=== PATIENT | female | born 1970 | race Caucasian/White ===

== ENCOUNTER → 2018-03-04 | Outpatient (CLI) | payer OTHER ==
[~2018-03-04] MED LIST: KET10 PO; OXYC-865 PO
--- NOTE | 2018-03-04 15:45 | RADIOLOGY IMAGING REPORT ---
FACILITY: [facility] PATIENT NAME: DUNCAN ANN : [id number] MR: [id number] V: [id number] EXAM DATE: ORDERING PHYSICIAN: ALCIRA ESTES TECHNOLOGIST: Yana Narayan PROCEDURE:BILATERAL DIGITAL SCREENING MAMMOGRAM WITH CAD ASSISTED INTERPRETATION & 3D TOMOSYNTHESIS COMPARISON:Previous mammograms 01/29/17 - 08/18/13 INDICATIONS:SCREENING FINDINGS: FINDING. There is heterogeneously dense glandular tissue throughout both breasts. There are no mass lesions, architectural distortions or any clustering of suspicious microcalcifications. There are a few scattered benign appearing calcifications in both breasts which are stable Category: 2 Benign RECOMMENDATIONS: ROUTINE MAMMOGRAM AND CLINICAL EVALUATION. IMPRESSION: BIRADS 2: Benign Dictated by: Caden Mercedes M.D. on 03/04/2018 at 11:55 Transcribed by: SUSAN on 03/04/2018 at 14:30 Approved by: Caden Mercedes M.D. on 03/04/2018 at 15:45 [facility]
== END ==
LOC: MAMO 01:11
PROVIDERS: ATTEND Physician Assistant
DX: Z12.31 Encounter for screening mammogram for malignant neoplasm of breast (principal)
CPT/HCPCS: 77063; 77067